=== PATIENT | female | born 1995 | race African-American/Black ===

== ENCOUNTER 2018-03-13 17:30 | Emergency (ER) | payer OTHER ==
[2018-03-13 18:11] VITALS: BP 103/60; PULSE 66; TEMP 98.8; BMI 20.5
--- NOTE | 2018-03-13 18:43 | PDOC ---
History of Present Illness - General Chief Complaint: Foreign Body (FB) Stated Complaint: VAGINAL DISORDER Time Seen by Provider: 03/13/18 17:39 History Source: Patient Exam Limitations: No Limitations - History of Present Illness Initial Comments: 03/13/18 18:42 The patient is a 23F with no PMH who presents to the ER with complaints of a foreign object in her vagina. The patient states that she finished her period last week. She states that this morning she woke up and felt an object in her vagina. She does not remember if she pulled her last tampon out or not. She denies any discharge, dysuria, fever, chills, nausea, vomiting. Past History - Past Medical History Allergies/Adverse Reactions: Allergies Allergy/AdvReac Type Severity Reaction Status Date / Time No Known Allergies Allergy Verified 11/07/15 05:59 Home Medications: Ambulatory Orders Vit/Iron Fum/Folic AC [ Tablet] 1 tablet PO DAILY 11/07/15 Acetaminophen [Tylenol .Regular Strength -] 650 mg PO Q3H PRN #0 tablet Benzocaine [Americaine 20% [place] -] 1 spray TP PRN PRN #0 bottle 11/08/15 Ferrous Sulfate [Feosol] 325 mg PO BIDWM #90 ud 11/08/15 Ibuprofen [Motrin -] 200 mg PO Q4H PRN #0 tablet 11/08/15 Witch Janell 50% (Tucks) [Tucks Pads -] 1 pad TP PRN PRN #0 pad 11/08/15 Asthma: No Cancer: No Cardiac Disorders: No COPD: No CHF: No Diabetes: No HTN: No Seizures: No Thyroid Disease: No - Suicide/Smoking/Psychosocial Hx Smoking History: Never smoked Have you smoked in the past 12 months: No Information on smoking cessation initiated: No Hx Alcohol Use: No Drug/Substance Use Hx: No Substance Use Type: None Hx Substance Use Treatment: No Review of Systems - Review of Systems Able to Perform ROS?: Yes Comments:: 03/13/18 19:26 GENERAL/CONSTITUTIONAL: No fever or chills. No weakness. HEAD, EYES, EARS, NOSE AND THROAT: No change in vision. No ear pain or discharge. No sore throat. CARDIOVASCULAR: No chest pain, palpitations, or lightheadedness. RESPIRATORY: No cough, wheezing, shortness of breath, or hemoptysis. GASTROINTESTINAL: No nausea, vomiting, diarrhea, constipation, or abdominal pain. GENITOURINARY: Positive for foreign object in vagina. No dysuria, frequency, hematuria, or change in urination. MUSCULOSKELETAL: No joint or muscle swelling or pain. No neck or back pain. SKIN: No rash or lesions. NEUROLOGIC: No headache, numbness, tingling, focal weakness, loss of consciousness, or change in strength/sensation. Is the patient limited Latvian proficient: No *Physical Exam - Vital Signs Last Vital Signs Temp Pulse Resp BP Pulse Ox 98.8 F 66 16 103/60 100 03/13/18 17:30 03/13/18 17:30 03/13/18 17:30 03/13/18 17:30 03/13/18 17:30 - Physical Exam Comments: 03/13/18 19:28 GENERAL: Well developed, well nourished. Awake and alert. No acute distress. HEENT: Normocephalic, atraumatic. Hearing grossly normal. Moist mucous membranes. No conjunctival pallor. Sclera are non-icteric. NECK: Supple. Full ROM. CARDIOVASCULAR: Regular rate and rhythm. No murmurs, rubs, or gallops. PULMONARY: No evidence of respiratory distress. Lungs clear to auscultation bilaterally. No wheezing, rales or rhonchi. ABDOMINAL: Soft. Non-tender. Non-distended. No rebound or guarding. GENITOURINARY: No CVA tenderness bilaterally. PELVIC: Tampon removed on speculum examination. No erythema or discharge noted. MUSCULOSKELETAL: Normal range of motion at all joints. No bony deformities or tenderness. EXTREMITIES: No cyanosis. No clubbing. No edema. No calf tenderness or swelling. SKIN: Warm and dry. Normal capillary refill. No rashes. No jaundice. NEUROLOGICAL: Alert, awake, appropriate. Cranial nerves 2-12 grossly intact. Normal speech. Gait is normal without ataxia. PSYCHIATRIC: Cooperative. Good eye contact. Appropriate mood and affect. Medical Decision Making - Medical Decision Making 03/13/18 19:29 The patient is a 23F with no PMH who presents to the ER with a tampon in her vagina which has been there for 1 week. Vitals WNL. Pt is nontoxic appearing. Tampon removed on speculum exam. Pt notified of reasons to return. Rest of pelvic exam negative. Will d/c home with PCP and charge account clerk f/u. *DC/Admit/Observation/Transfer Diagnosis at time of Disposition: Vaginal foreign object Qualifiers: Encounter type: initial encounter Qualified Code(s): T19.2XXA - Foreign body in vulva and vagina, initial encounter - Discharge Dispostion Disposition: HOME Condition at time of disposition: Stable Decision to Admit order: No - Referrals Referrals: Ashok Álvarez MD [Staff Physician] - Errol Celestin MD [Staff Physician] - - Patient Instructions Printed Discharge Instructions: Toxic Shock Syndrome: Tampons and More Additional Instructions: Please follow up with your primary care physician in 2-3 days. Please return to the ER if you have any signs or symptoms of chest pain, shortness of breath, uncontrollable fever, chills, nausea, vomiting, numbness, tingling, or weakness in any part of your body, changes in vision, or slurred speech. Please return to the ER if symptoms persist, worsen, or new symptoms arise. - Post Discharge Activity
--- NOTE | 2018-03-13 19:22 | PDOC ---
Attending Attestation - Resident Resident Name: Tom Carrasco - ED Attending Attestation I have performed the following: I have examined & evaluated the patient, The case was reviewed & discussed with the resident, I agree w/resident's findings & plan, Exceptions are as noted - Physicial Exam PE: 03/13/18 19:21 Patient is awake and alert, well-appearing, in no distress Normocephalic and atraumatic cta rrr Abdomen soft, nontender, nondistended Pelvic exam: See no by Dr. Carrasco - Medical Decision Making 03/13/18 19:21 Patient is a 23-year-old female who presents with a vaginal foreign body ( likely tampon); foreign body removed by Dr. Hoang. No evidence of toxic shock is present. Will discharge with instructions to return immediately for fever, abdominal pain, purulent discharge. <Aditya Santana - Last Filed: 03/13/18 19:21> - HPI HPI: 03/13/18 19:23 The patient is a 23 year old female, with no significant PMH, who presents to the emergency department with complaints of a vaginal foreign body. The patient denies any recent fever, chills, nausea, vomit, diarrhea and constipation. The patient denies chest pain, shortness of breath, headache and dizziness. Denies dysuria, frequency, urgency and hematuria. Allergies: NKA Documentation prepared by John Sauer, acting as chief medical director for Aditya Santana MD. <John Sauer - Last Filed: 03/13/18 19:23>
== END 2018-03-13 18:47 | disposition home or self-care (01) ==
LOC: JER 17:30
DX: T19.2XXA Foreign body in vulva and vagina, initial encounter (principal); X58.XXXA Exposure to other specified factors, initial encounter; Y93.89 Activity, other specified; Y92.038 Other place in apartment as the place of occurrence of the external cause; Y99.8 Other external cause status
CPT/HCPCS: 99282-25